=== PATIENT | male | born 1985 | race American Indian/Alaskan Native ===

== ENCOUNTER 2020-09-21 10:38 | Outpatient (CLI) | payer OTHER ==
--- NOTE | 2020-09-21 13:24 | XRay Report ---
BILATERAL KNEES 3 VIEW(S) INDICATION / CLINICAL INFORMATION: RIGHT KNEE PAIN. COMPARISON: None available. FINDINGS: There is a left femoral intramedullary kimberly which appears intact. There is a large lucent re gion involving the mid left femoral diaphysis with associated bony excrescences. There is a suspected pathologic fracture along the lateral cortex of the mid femoral diaphysis on the left. No significan t arthritis is seen of either knee. Signer Name: Paramjit Tinsley MD Signed: 09/21/2020 1:19 PM Workstation Name: [id number]
== END 2020-09-21 10:39 | disposition home or self-care (01) ==
LOC: XRAY 10:38
PROVIDERS: ATTEND Orthopaedic Surgery
DX: M25.561 Pain in right knee (principal)
CPT/HCPCS: 73565